=== PATIENT | female | born 1950 | race Caucasian/White ===

== ENCOUNTER 2018-02-23 07:38 | Day surgery (SDC) | payer MEDICARE ==
[~2018-02-23] VITALS: Ht 172.7 cm; Wt 80.3 kg
[~2018-02-23 07:38] MED LIST: CALCIUM500 MG PO; CITRUCEL POWDE454 GM PO; CO Q-10100 MG PO; CRESTOR10 MG PO; FAMOTIDINE10 MG PO; FLUTICASONE PRO16 GM NAS; LISINOPRIL20 MG PO
--- NOTE | 2018-02-23 09:12 | NUR ---
02/23/18 0912 Keila Cardona 0908-PATIENT ARRIVED TO PACU ON 3L NC O2 SAT 94% PATIENT LAYING LEFT LATERAL. ABDOMEN SOFT. PASSING FLATUS. RR EVEN
--- NOTE | 2018-02-23 10:54 | OR ---
[facility] [address], [place] [address] Signed DATE OF OPERATION: 02/23/2018 SURGEON: Dena Messina MD PREOPERATIVE DIAGNOSIS: Rectal hyperplastic polyp 2005. POSTOPERATIVE DIAGNOSIS: A 7 mm polyp at 15-18 cm (sigmoid colon). PROCEDURES: Colonoscopy with snare polypectomy and tattoo at 15-18 cm. ESTIMATED BLOOD LOSS: None. INDICATIONS: Sarah Beth is a 67-year-old female, who was asked to see me for a followup colonoscopy. She had a hyperplastic polyp removed from the mid rectum in 2005. She has no lower GI complaints. There is no family history of colon cancer or polyps. In the office, I gave Sarah Beth a pamphlet on colonoscopy and we looked at that together along with the risks including, but not limited to gas bloating, crampy abdominal pain, bleeding, perforation, requiring surgery, and missed diagnosis. We also discussed the need for IV conscious sedation. She had expressed understanding and wished to proceed. PROCEDURE NOTE: Sarah Beth was taken into our endoscopy suite and placed in the left lateral decubitus position. She was given IV sedation with 6 mg of Versed and 175 mcg of fentanyl. A digital rectal exam was performed and this was unremarkable. The adult colonoscope was then introduced. She has a difficult rectosigmoid junction. It took several minutes with additional sedation, abdominal compression, and finally rotating her into the supine position in order to get the scope to advance. I did have to rotate the scope a bit as well. The scope then travelled nicely once we got above the sigmoid colon all the way around into the cecum. I did take some extra sedation and extra lubrication, as it was continuing to drag back in the sigmoid colon. Fortunately, her prep was quite good. The scope was then slowly withdrawn. We found we made our way back into that tortuous distal sigmoid colon around 15-18 cm and we could see a polyp in front of this. We took that off with the help of the snare. We suctioned that on to our scope and brought that back into the rectum where we could grasp it with a biopsy forceps and bring it out of the rectum for pathologic review. We went back up into the sigmoid Electronically Signed By: DENA MESSINA MD 02/23/18 1054 PATIENT NAME: SARAH BETH COLEMAN OPERATIVE REPORT DATE OF : 46 REPORT #: [id number] PHYSICIAN: DENA MESSINA MD PCP: DALE CABRERA DO REPORT IS CONFIDENTIAL AND NOT TO BE RELEASED WITHOUT AUTHORIZATION [facility] [address] [place] [id number] Signed colon and again it took a few minutes to get back to the area of polypectomy. We did not see any additional polyp there. We went ahead and injected some tattoo just opposite that polypectomy site. After this, the scope was brought back into the rectum. The scope was retroflexed and there was no pathology above the anal canal. The gas was then suctioned out. The colonoscope removed. Sarah Beth tolerated the procedure quite well. RECOMMENDATIONS: I will see Sarah Beth back in my office in 7 to 14 days to review her results. She might consider a short interval followup anywhere from 1-3 years to re-evaluate this area in the sigmoid colon. Dena Messina MD ALB/MODL /[id number] cc: MD Dale Olson DO Copies: DENA MESSINA MD, FRANK E DO ~ Electronically Signed By: DENA MESSINA MD 02/23/18 1054 PATIENT NAME: SARAH BETH COLEMAN OPERATIVE REPORT DATE OF : 46 REPORT #: [id number] PHYSICIAN: DENA MESSINA MD PCP: DALE CABRERA DO REPORT IS CONFIDENTIAL AND NOT TO BE RELEASED WITHOUT AUTHORIZATION
--- NOTE | 2018-02-24 07:48 | NUR ---
I QUICKLY MET WITH PT-STAFF WAS READY TO TAKE HER. PT SEEMED ALERT AND ORIENTED, EXTENDED A BLESSING, WILL FOLLOW NEEDED
== END 2018-02-23 09:52 | disposition home or self-care (01) ==
LOC: DS 07:38 → OPS 07:38 → DS 09:00 → OPS 09:00
PROVIDERS: Colon & Rectal Surgery
PROC: 3E0H8GC Introduction of Other Therapeutic Substance into Lower GI, Via Natural or Artificial Opening Endoscopic (ICD-10-PCS; 2018-02-23)
PROC: 0DBN8ZZ Excision of Sigmoid Colon, Via Natural or Artificial Opening Endoscopic (ICD-10-PCS; principal; 2018-02-23 09:00)
DX: Z12.11 Encounter for screening for malignant neoplasm of colon (principal); D12.5 Benign neoplasm of sigmoid colon; I10 Essential (primary) hypertension; E78.5 Hyperlipidemia, unspecified; M81.0 Age-related osteoporosis without current pathological fracture; E55.9 Vitamin D deficiency, unspecified; Z86.010 Personal history of colon polyps; Z88.8 Allergy status to other drugs, medicaments and biological substances; Z88.2 Allergy status to sulfonamides; Z79.899 Other long term (current) drug therapy; Z79.51 Long term (current) use of inhaled steroids
CPT/HCPCS: 88305; 99153; G0500; J2250; J3010; J7120